=== PATIENT | male | born 1935 | race Caucasian/White ===

== ENCOUNTER 2019-03-20 13:37 | Outpatient (RCR) | payer MEDICARE, OTHER, SELFPAY | END 2019-04-11 00:01 | LOC: SPT 13:37 | PROVIDERS: Family Provider Family Medicine; Visit Provider Orthopaedic Surgery | DX: Z47.1 Aftercare following joint replacement surgery (principal); Z96.652 Presence of left artificial knee joint | CPT/HCPCS: 97110 ×9; 97161 ==

== ENCOUNTER 2019-04-12 13:03 | Outpatient (RCR) | payer MEDICARE, OTHER, SELFPAY | END 2019-05-12 23:59 | disposition home or self-care (01) | LOC: SPT 13:03 | PROVIDERS: Family Provider Family Medicine; PCP Family Medicine; Visit Provider Orthopaedic Surgery | DX: Z47.1 Aftercare following joint replacement surgery (principal); Z96.652 Presence of left artificial knee joint | CPT/HCPCS: 97110 ==

== ENCOUNTER 2019-05-13 06:00 | Outpatient (RCR) | payer MEDICARE, OTHER, SELFPAY | END 2019-06-10 23:59 | disposition home or self-care (01) | LOC: SPT 06:00 | PROVIDERS: Family Provider Family Medicine; PCP Family Medicine; Visit Provider Orthopaedic Surgery | DX: Z47.1 Aftercare following joint replacement surgery (principal); Z96.652 Presence of left artificial knee joint | CPT/HCPCS: 97110; 97150 ==

== ENCOUNTER 2019-05-30 13:23 | Outpatient (CLI) | payer MEDICARE, OTHER, SELFPAY ==
--- NOTE | 2019-05-30 13:25 | XR_ITS ---
WS: [id number] XR knee LT 3V* [id number] REASON FOR EXAM: LEFT KNEE PAIN FINDINGS: Total knee replacement on the left is seen. The hardware appears to be in good position. No dysfunction changes are noted. There is no bony abnormalities in the supporting structures. XR/XR knee LT 3V* [id number] IMPRESSION: Total knee replacement satisfactory.
== END 2019-05-30 13:24 | disposition home or self-care (01) ==
LOC: RAD 13:23
PROVIDERS: Family Provider Family Medicine; PCP Family Medicine; Visit Provider Orthopaedic Surgery
DX: M25.562 Pain in left knee (principal); Z96.652 Presence of left artificial knee joint
CPT/HCPCS: 73562

== ENCOUNTER 2019-06-11 06:00 | Outpatient (RCR) | payer MEDICARE, OTHER, SELFPAY | END 2019-06-28 23:00 | disposition home or self-care (01) | LOC: SPT 06:00 | PROVIDERS: Family Provider Family Medicine; PCP Family Medicine; Visit Provider Orthopaedic Surgery | DX: Z01.89 Encounter for other specified special examinations (principal) ==

== ENCOUNTER 2019-06-27 12:47 | Outpatient (CLI) | payer MEDICARE, OTHER, SELFPAY ==
--- NOTE | 2019-06-27 13:01 | XR_ITS ---
WS: [id number] XR knee LT 3V* [id number] REASON FOR EXAM: L KNEE PAIN FINDINGS: Total knee replacement on the left side with the hardware in good position. There is mild soft tissue swelling overriding the patella. XR/XR knee LT 3V* [id number] IMPRESSION: Total knee replacement satisfactory alignment. Mild soft tissue swelling.
== END 2019-06-27 12:48 | disposition home or self-care (01) ==
LOC: RAD 12:53
PROVIDERS: Family Provider Family Medicine; PCP Family Medicine; Visit Provider Orthopaedic Surgery
DX: M25.562 Pain in left knee (principal); Z96.652 Presence of left artificial knee joint
CPT/HCPCS: 73562

== ENCOUNTER 2020-02-15 10:42 | Outpatient (CLI) | payer MEDICARE, OTHER, SELFPAY ==
--- NOTE | 2020-02-15 | XR_ITS ---
WS: [id number] Lumbar spine, 3 views, 02/15/2020 Clinical Data: LOW BACK PAIN Comparison: None. Findings: No compression fractures or subluxation is seen. There is space narrowing at L3-L4, L4-L5 and L5-S1. Anterior osteoarthritic spurring is seen. The transverse processes and SI joints are normal. There is calcification of the wall of the abdominal aorta but no aneurysm is seen. XR/XR lumbar spine 2-3V* [id number] Impression: 1. 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 2. Degenerative disc narrowing at L3-L4, L4-L5 and L5-S1.
== END 2020-02-15 10:43 | disposition home or self-care (01) ==
PROVIDERS: PCP Family Medicine; Visit Provider Family Medicine
DX: M54.5 Low back pain (principal); M47.816 Spondylosis without myelopathy or radiculopathy, lumbar region
CPT/HCPCS: 72100

== ENCOUNTER 2020-03-27 13:38 | Outpatient (CLI) | payer MEDICARE, OTHER, SELFPAY ==
--- NOTE | 2020-03-27 13:44 | XR_ITS ---
WS: [id number] Right hip, AP and frog-leg views, 03/27/2020 Clinical Data: HIP PAIN, RIGHT Comparison: None. Findings: No fractures or dislocations are seen. The hip joint is intact. The soft tissues are not remarkable. The adjacent pelvis is normal. XR/XR hip RT 2-3V wo/w pel* [id number] Impression: Negative right hip.
--- NOTE | 2020-03-27 13:44 | MR_ITS ---
WS: [id number] MRI LUMBAR SPINE NONCONTRAST HISTORY: HIP PAIN, RIGHT, LOW BACK PAIN COMPARISON: None available. TECHNIQUE: Sagittal and axial multisequence imaging is submitted. Increase in the cervical lordosis and thoracic kyphosis. Disc bulging and osteophytes in the central cervical region contribute to mild central stenosis. No cord compression through the thoracic spine. Less than 2 mm anterolisthesis of L4. Mild disc space narrowing and desiccation. Most significant desiccation at L5-S1. Conus terminates normally at L2. L1-L2: Mild annular disc bulging and facet arthritis. Very shallow central disc protrusion. L2-L3: Mild annular disc bulging. Moderate size RIGHT foraminal and subarticular recess disc protrusi on causing significant stenosis. Mild contact on the RIGHT lateral thecal sac. This disc is probably contacting both the L2 and L3 nerve root. L3-L4: Mild osteophytic ridging and annular disc bulging. Asymmetric facet joint arthritis and ligame ntum flavum hypertrophy, greater on the LEFT. Mild LEFT foraminal narrowing. L4-L5: Mild diffuse disc bulging and osteophytic ridging and mild facet arthritis. Mild subarticular recess narrowing. Asymmetric ligamentum flavum hypertrophy encroaches into the thecal sac. Mild centr al stenosis. L5-S1: Mild annular disc bulging. There is very slight contact on the L5 nerve roots bilaterally. Mild atherosclerotic disease within the aorta. MR/MR lumbar spine wo con* [id number] IMPRESSION: 1. Moderate-sized RIGHT subarticular foraminal disc protrusion at L2-3 with co ntact on the L2 and L3 nerve roots and foraminal stenosis. 2. Facet joint arthritis at L3-4 through L5-S1. 3. Mild LEFT foraminal stenosis at L3-4. 4. Mild central stenosis at L4-5. 5. Minimal contact on the L5 nerve roots bilaterally at L5-S1 due to disc bulg ing.
== END 2020-03-27 13:39 | disposition home or self-care (01) ==
LOC: RADWPI 13:43
PROVIDERS: PCP Family Medicine; Visit Provider Family Medicine
DX: M25.551 Pain in right hip (principal); M51.26 Other intervertebral disc displacement, lumbar region; M47.817 Spondylosis without myelopathy or radiculopathy, lumbosacral region; M48.061 Spinal stenosis, lumbar region without neurogenic claudication
CPT/HCPCS: 72148; 73502

== ENCOUNTER → 2021-06-16 13:22 | Outpatient (BNVA) | payer MEDICARE, OTHER, SELFPAY | PROVIDERS: PCP Family Medicine; Visit Provider Internal Medicine Cardiovascular Disease | DX: I25.10 Atherosclerotic heart disease of native coronary artery without angina pectoris (principal); I10 Essential (primary) hypertension; E78.00 Pure hypercholesterolemia, unspecified; I49.1 Atrial premature depolarization; Z95.1 Presence of aortocoronary bypass graft; Z87.891 Personal history of nicotine dependence | CPT/HCPCS: 99215 ==

== ENCOUNTER 2021-08-21 08:04 | Outpatient (CLI) | payer MEDICARE, OTHER, SELFPAY ==
[2021-08-21 08:48] VITALS: BMI 24.3
--- NOTE | 2021-08-21 08:48 | ECG_ITS ---
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 Interpretive Statements NAME OF STUDY: LEXISCAN SESTAMIBI STRESS TEST INDICATION: Chest Pain PROCEDURE: At the baseline, the blood pressure was 158/79 mmHg, oxygen saturation 97% with a heart rate of 61 bpm. The electrocardiogram showed normal sinus rhythm, right axis deviation. Possible old anterior infarct. The Lexiscan was infused over a period of 20 seconds. A total of 0.4 milligrams of Lexiscan was infused. The stress phase was continued for a total of 5 minutes. Heart rate at the end of the stress phase was 82 bpm, oxygen saturation 97% with a blood pressure of 154/83 mmHg. The EKG at the peak infusion revealed sinus rhythm with no significant ST-T wave changes. The study was terminated protocol completion. Sestamibi was injected 20 seconds after the Lexiscan infusion. Blood pressure at the end of the recovery phase was 152/84 mmHg, oxygen saturation 97% with a heart rate of 76 beats per minute. CONCLUSION: 1. No significant EKG changes with the LexiScan infusion. 2. No LexiScan induced chest pain or cardiac arrhythmia. 3. Normal blood pressure and heart rate response. 4. Sestamibi/sestamibi perfusion scan pending; see separate report. Electronically Signed On 08-25-2021 11:02:44 CDT by Diane Mirza M.D. [id number]
--- NOTE | 2021-08-21 08:48 | NMCV_ITS ---
NM ele perf SPECT r/s* [id number] West Villanueva Age: 85 Gender: M : 1935 Exam Date: 08/21/2021 08:48 Ordering Phys: Diane Mirza MD ([email or web address]) Technologist: YANIV Rodriguez Exam Location: [facility] Indications: CHEST PAIN STRESS TEST Please see separate stress test report in [facility] for full findings IMAGE PROTOCOL Rest/Stress 1 Lexiscan Day Radiopharmaceutical Dose (mCi) Administration Site Administered by Rest: Tc-99m 10.7 IV YANIV Rodriguez Sestamibi Stress:Tc-99m 32.9 IV YANIV Rodriguez Sestamibi Rest: 21-Aug-2021 60 Discovery 630 Stress: 21-Aug-2021 30 Discovery 630 0.4mg Lexiscan. Images obtained in supine and prone position. SPECT RESULTS Technical Quality: Excellent Raw Data Analysis: Normal Image Corrections: No attenuation or motion correction applied Summed Stress Score: 5 Summed Rest Score: 2 Summed Difference Score: 3 PERFUSION FINDINGS Small sized perfusion abnormality of mild severity of basal to mid inferior wall on rest images with reversibility in mid to apical inferior and apical lateral santos on stress images. FUNCTIONAL RESULTS (calculated via Gated SPECT) Stress Image LV EF (%): 64 Stress EDV (mL):90 TID: 0.82 Stress ESV (mL):32 FUNCTIONAL FINDINGS: The left ventricle is normal in size. Transient Ischemia Dilatation of 0.82. The left ventricular ejection fraction is normal with a value of 64%. There is normal left ventricular wall thickening. Normal end diastolic and end systolic volumes. IMPRESSIONS 1. Small sized partially reversible perfusion abnormality of basal to apical inferior wall and apical lateral santos. 2. 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 3. Overall left ventricular systolic function is normal without regional wall motion abnormalities, LVEF=64%. 4. EKG portion of the study will be reported separately. 5. No prior similar studies to compare. Diane Mirza MD (Electronically Signed) Final Date: 22 Aug 2021 17:49 S
--- NOTE | 2021-08-21 10:59 | PC.NURSE ---
pt not able to hit 85% to complete test. dr ruth roberto to change to GetMaidgeraldan
[2021-08-21 11:17] VITALS: BP 168/90; PULSE 79
[2021-08-21] MEDS: regadenoson 0.4 Mg/5 ml Syringe IVP (11:18)
== END 2021-08-21 08:05 | disposition home or self-care (01) ==
LOC: RAD 08:05 → CDL 08:47
PROVIDERS: PCP Family Medicine; Visit Provider Internal Medicine Cardiovascular Disease
DX: R07.9 Chest pain, unspecified (principal)
CPT/HCPCS: 78452; 93017; A9500; J2785

== ENCOUNTER → 2021-12-23 13:42 | Outpatient (BNVA) | payer MEDICARE, OTHER, SELFPAY | PROVIDERS: PCP Family Medicine; Visit Provider Internal Medicine Cardiovascular Disease | DX: I25.10 Atherosclerotic heart disease of native coronary artery without angina pectoris (principal); Z95.1 Presence of aortocoronary bypass graft; I10 Essential (primary) hypertension; E78.00 Pure hypercholesterolemia, unspecified; I49.1 Atrial premature depolarization; Z87.891 Personal history of nicotine dependence | CPT/HCPCS: 99214 ==

== ENCOUNTER → 2022-06-16 14:55 | Outpatient (BNVA) | payer MEDICARE, OTHER, SELFPAY | PROVIDERS: PCP Family Medicine; Visit Provider Nurse Practitioner Family | DX: I25.10 Atherosclerotic heart disease of native coronary artery without angina pectoris (principal); I10 Essential (primary) hypertension; E78.00 Pure hypercholesterolemia, unspecified; Z87.891 Personal history of nicotine dependence; Z95.1 Presence of aortocoronary bypass graft | CPT/HCPCS: 99214 ==

== ENCOUNTER → 2022-08-27 13:41 | Outpatient (BNVA) | payer MEDICARE, OTHER, SELFPAY | PROVIDERS: PCP Family Medicine; Visit Provider Family Medicine | DX: R41.3 Other amnesia (principal) | CPT/HCPCS: 80053; 82607; 82746; 84443; 85025; 86592 ==

== ENCOUNTER → 2023-01-11 15:24 | Outpatient (BNVA) | payer MEDICARE, OTHER, SELFPAY | PROVIDERS: PCP Family Medicine; Visit Provider Internal Medicine Cardiovascular Disease | DX: I25.10 Atherosclerotic heart disease of native coronary artery without angina pectoris (principal); Z95.1 Presence of aortocoronary bypass graft; I10 Essential (primary) hypertension; E78.00 Pure hypercholesterolemia, unspecified; Z87.891 Personal history of nicotine dependence | CPT/HCPCS: 99214 ==

== ENCOUNTER → 2023-02-17 08:31 | Outpatient (BNVA) | payer MEDICARE, OTHER, SELFPAY | PROVIDERS: PCP Family Medicine; Referring Provider Family Medicine; Visit Provider Psychiatry & Neurology Neurology | DX: F03.90 Unspecified dementia, unspecified severity, without behavioral disturbance, psychotic disturbance, mood disturbance, and anxiety (principal); Z86.73 Personal history of transient ischemic attack (TIA), and cerebral infarction without residual deficits; I25.10 Atherosclerotic heart disease of native coronary artery without angina pectoris; I10 Essential (primary) hypertension; Z95.1 Presence of aortocoronary bypass graft; Z87.891 Personal history of nicotine dependence | CPT/HCPCS: 99203 ==

== ENCOUNTER 2023-03-24 14:37 | Outpatient (CLI) | payer MEDICARE, OTHER, SELFPAY ==
--- NOTE | 2023-03-24 15:15 | USCV_ITS ---
West Villanueva Age: 87 Gender: M : 1935 Exam Date: 03/24/2023 15:40 Ordering Phys: Javier Lee MD Technologist: HUI Exam Location: [facility] Indication: TIA Risk Factors: Previous Vascular Surgery: Right Brachial BP: / Left Brachial BP: / Right Left Velocity (cm/s) Spectral Plaque Velocity (cm/s) Spectral Plaque Syst/Diast Broadening Syst/Diast Broadening 45.40/ 9.20 Prox CCA 78.20 / 13.80 49.30/ 9.20 Mid CCA 62.50 / 12.50 42.70/ 12.50 Distal CCA 52.30 / 14.80 24.00/ 8.20 Prox ICA 47.50 / 15.50 40.40/ 13.70 Mid ICA 37.90 / 15.00 42.70/ 14.50 Distal ICA 64.60 / 21.40 98.30 ECA 115.80 0.87 ICA/CCA 0.83 Antegrade Vertebral Antegrade 67.00/ 7.90 cm/s 32.60/ 10.10 cm/s Tri Subclavian Tri 87.00 134.6 0 CONCLUSIONS Right ICA stenosis <50%. Mild atheromatous plaque right carotid bulb/ICA. Left ICA stenosis <50%. Mild atheromatous plaque left carotid bulb/ICA. Normal antegrade Doppler flow noted in the right vertebral artery. Normal antegrade Doppler flow noted in the left vertebral artery. Foreign Luna MD (Electronically Signed) Final Date: 24 March 2023 16:37 S
--- NOTE | 2023-03-24 15:45 | MR_ITS ---
WS: [id number] MRA HEAD TECHNIQUE: Axial 3-D TOF images obtained with axial images and axial, sagittal, and coronal 2-D refor matted images. CLINICAL INFORMATION: F03.90 - Unspecified dementia, unspecified severity, with... COMPARISON: None. FINDINGS: LEFT dominant distal vertebral artery. Small distal RIGHT vertebral artery is patent. Basilar artery is patent. Normal vascularity to the CASTING CARRIER territory bilaterally. Both ICAs are patent at the skull base. Normal vascularity to the CAMILO and MCA territories bilaterally . No evidence of proximal flow-limiting stenosis or aneurysm. Mild intracranial atheromatous disease. Moderate LEFT and mild RIGHT stenosis at the P1-2 junctions bilaterally. Distal CASTING CARRIER vessels remain p atent. IMPRESSION: 1. Mild intracranial atheromatous disease. 2. No evidence of proximal flow-limiting stenosis or aneurysm. 3. Moderate LEFT and mild RIGHT stenosis at the P1-2 junctions. Distal CASTING CARRIER vessels remain patent.
--- NOTE | 2023-03-24 16:00 | MR_ITS ---
WS: [id number] MRI HEAD WITHOUT CONTRAST TECHNIQUE: Sagittal T1, T2 axial, T2 axial FLAIR, axial and coronal T1 images, axial susceptibility w eighted imaging, axial diffusion weighted images, and coronal T2 images were obtained. CLINICAL INFORMATION: F03.90 - Unspecified dementia, unspecified severity, with... COMPARISON: None. FINDINGS: No evidence of restricted diffusion to suggest acute ischemia. Ventricular system and basilar cistern s are patent. Mild small vessel changes. Advanced parenchymal volume loss with prominent subarachnoid spaces overlying the vertex. Few tiny chronic lacunar infarcts in the cerebellum. Normal vascular fl ow voids at the skull base. Paranasal sinuses are well aerated. Mastoid air cells are well aerated. Normal posterior nasopharynx. Normal optic chiasm and pituitary infundibulum. Advanced symmetric atrophy temporal lobes and hippoc ampal formations. No hemosiderin on the susceptibly weighted images. Mild central canal stenosis in the upper cervical spine partially visualized C3-C4. IMPRESSION: 1. No evidence of restricted diffusion to suggest acute ischemia. 2. Mild small vessel changes with advanced parenchymal volume loss. 3. Advanced symmetric atrophy temporal lobes and hippocampal formations. 4. No hemosiderin on susceptibly weighted images. 5. Tiny chronic lacunar infarcts in the cerebellum.
== END 2023-03-24 14:38 | disposition home or self-care (01) ==
PROVIDERS: PCP Family Medicine; Visit Provider Psychiatry & Neurology Neurology
DX: F03.90 Unspecified dementia, unspecified severity, without behavioral disturbance, psychotic disturbance, mood disturbance, and anxiety (principal); Z86.73 Personal history of transient ischemic attack (TIA), and cerebral infarction without residual deficits; I67.2 Cerebral atherosclerosis; I10 Essential (primary) hypertension; I25.10 Atherosclerotic heart disease of native coronary artery without angina pectoris; R41.3 Other amnesia
CPT/HCPCS: 70544; 70551; 93880

== ENCOUNTER → 2023-05-18 13:20 | Outpatient (BNVA) | payer MEDICARE, OTHER, SELFPAY | PROVIDERS: PCP Family Medicine; Visit Provider Psychiatry & Neurology Neurology | DX: F03.90 Unspecified dementia, unspecified severity, without behavioral disturbance, psychotic disturbance, mood disturbance, and anxiety (principal); I25.10 Atherosclerotic heart disease of native coronary artery without angina pectoris; Z87.891 Personal history of nicotine dependence; I10 Essential (primary) hypertension; E55.9 Vitamin D deficiency, unspecified | CPT/HCPCS: 36415; 82306; 82542; 83735; 86592; 86780; 99212 ==

== ENCOUNTER → 2023-06-23 13:15 | Outpatient (BNVA) | payer MEDICARE, OTHER, SELFPAY | PROVIDERS: PCP Family Medicine; Visit Provider Family Medicine | DX: I10 Essential (primary) hypertension (principal); E78.00 Pure hypercholesterolemia, unspecified | CPT/HCPCS: 80053; 80061 ==

== ENCOUNTER → 2023-07-13 13:52 | Outpatient (BNVA) | payer MEDICARE, OTHER, SELFPAY | PROVIDERS: PCP Family Medicine; Visit Provider Psychiatry & Neurology Neurology | DX: F03.90 Unspecified dementia, unspecified severity, without behavioral disturbance, psychotic disturbance, mood disturbance, and anxiety (principal); R41.3 Other amnesia; R94.01 Abnormal electroencephalogram [EEG] | CPT/HCPCS: 95812 ==

== ENCOUNTER → 2023-07-26 13:01 | Outpatient (BNVA) | payer MEDICARE, OTHER, SELFPAY | PROVIDERS: PCP Family Medicine; Visit Provider Psychiatry & Neurology Neurology | DX: R41.3 Other amnesia (principal); R94.01 Abnormal electroencephalogram [EEG]; I25.10 Atherosclerotic heart disease of native coronary artery without angina pectoris; Z87.891 Personal history of nicotine dependence; I10 Essential (primary) hypertension | CPT/HCPCS: 99212 ==

== ENCOUNTER → 2023-09-23 14:02 | Outpatient (BNVA) | payer MEDICARE, OTHER, SELFPAY | PROVIDERS: PCP Family Medicine; Visit Provider Internal Medicine | DX: I25.10 Atherosclerotic heart disease of native coronary artery without angina pectoris (principal); Z95.1 Presence of aortocoronary bypass graft; I10 Essential (primary) hypertension; E78.00 Pure hypercholesterolemia, unspecified; I49.1 Atrial premature depolarization; Z87.891 Personal history of nicotine dependence | CPT/HCPCS: 99214 ==

== ENCOUNTER → 2023-12-21 13:13 | Outpatient (BNVA) | payer MEDICARE, OTHER, SELFPAY | PROVIDERS: PCP Family Medicine; Visit Provider Psychiatry & Neurology Neurology | DX: R41.3 Other amnesia (principal); R94.01 Abnormal electroencephalogram [EEG] | CPT/HCPCS: 99212; 99213 ==

== ENCOUNTER → 2024-03-01 13:41 | Outpatient (BNVA) | payer MEDICARE, OTHER, SELFPAY | PROVIDERS: PCP Family Medicine; Visit Provider Family Medicine | DX: F03.90 Unspecified dementia, unspecified severity, without behavioral disturbance, psychotic disturbance, mood disturbance, and anxiety (principal) | CPT/HCPCS: 86618; 86666; 86757 ==

== ENCOUNTER → 2024-06-19 13:09 | Outpatient (BNVA) | payer MEDICARE, OTHER, SELFPAY | PROVIDERS: PCP Family Medicine; Visit Provider Psychiatry & Neurology Neurology | DX: F03.90 Unspecified dementia, unspecified severity, without behavioral disturbance, psychotic disturbance, mood disturbance, and anxiety (principal); R41.3 Other amnesia; R94.01 Abnormal electroencephalogram [EEG] | CPT/HCPCS: 0346U; 36415; 83520; 99212 ==

== ENCOUNTER → 2024-10-12 15:02 | Outpatient (BNVA) | payer MEDICARE, OTHER, SELFPAY | PROVIDERS: Visit Provider Internal Medicine | DX: I25.10 Atherosclerotic heart disease of native coronary artery without angina pectoris (principal); I10 Essential (primary) hypertension; E78.00 Pure hypercholesterolemia, unspecified; I49.1 Atrial premature depolarization; Z95.1 Presence of aortocoronary bypass graft; Z87.891 Personal history of nicotine dependence | CPT/HCPCS: 99213 ==

== ENCOUNTER 2024-12-27 20:41 | Emergency (ER) | payer OTHER, SELFPAY ==
[2024-12-27 20:42] VITALS: BP 149/92; PULSE 85; RESP 16; TEMP 36.6; O2SAT 94; BMI 24.3
--- OUTSIDE RECORDS SUMMARY | 2024-12-27 20:54 | XMS_ITS | Continuity of Care Document ---
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 Refere nce Range Tuberculosis reaction wheal[ 04849-5] Tuberculosis reaction wheal [50079-1] 12/08/2024 02:45 PM 0 mm NEG Tuberculosis reaction wheal[ 39763-0] Tuberculosis reaction wheal [42566-3] 12/02/2024 04:24 PM 0 mm NEG Allergies, adverse reactions, alerts No known allergies and adverse reactions Immunizations Vaccine Route Date Status COVID-19 Vaccine Unassigned Route of Administration Completed COVID-19 Vaccine Unassigned Route of Administration Completed COVID-19 Vaccine Unassigned Route of Administration Completed COVID-19 Vaccine Unassigned Route of Administration Refused Zoster Vaccine Unassigned Route of Administration 07/11 Completed Medications Medication Instructions Route Dosage Frequency Start Date Stop Date Indications Status atorvastatin 80 mg tablet (atorvastatin) 1 tab, oral, Once A Day, TI for rosuvastatin oral 1.0 1.0 d 12/18 Active citalopram 10 mg tablet (citalopram) 1 tab, oral, Once A Day oral 1.0 1.0 d 2024 Active cholecalciferol (vitamin D3) 1,250 mcg (50,000 unit) capsule (cholecalcifero l (vitamin D3)) 1 cap, oral, Once a Day on Mon oral 1.0 1.0 d 12/18 Active Dulcolax (bisacodyl) (bisacodyl) 10 mg suppository (Dulcolax (bisacodyl) (bisacodyl)) 1 suppository, rectal, Once A Day - PRN, Give rectally if can't take p/o, if no results from MOM rectal 1.0 1.0 d 2024 Active trazodone 50 mg tablet (trazodone) 1 tab, oral, At Bedtime oral 1.0 2024 Active Tylenol (acetaminophen) 325 mg tablet (Tylenol (acetaminophen) ) 2 tabs/650mg, oral, Every 6 Hours - PRN, as needed for PRN pain/increase d tempMay give rectally if necessary oral 1.0 6.0 h 2024 Active Tubersol (tuberculin ppd) 5 tub. unit /0.1 mL solution (Tubersol (tuberculin ppd)) 0.1ml, intradermal, Once - One Time, Administer the morning after admission intraderma l 1.0 12/02 Active Tubersol (tuberculin ppd) 5 tub. unit /0.1 mL solution (Tubersol (tuberculin ppd)) 0.1ml, intradermal, Once - One Time, Administer on the day shift intraderma l 1.0 12/08 Active Vital Signs Date Vital Result Comment 12/06/2024 12:41 PM Body Weight (42432-1) 164.8 [lb_av ] Body Mass Index (56767-1) 25.06 kg/m2 12/01/2024 03:41 PM Temperature (8310-5) 97.3 [degF] Oxygen Saturation (70222-3) 100 % Respiratory Rate (9279-1) 19 /min Heart Rate (8867-4) 72 /min Blood Pressure Systolic (8480-6) 124 mm[Hg] Blood Pressure Diastolic (8462-4) 84 mm[Hg] Body Weight (27620-1) 154.4 [lb_av] Body Mass Index (88891-0) 23.47 kg/m2 12/02/2024 08:15 AM Body Weight (31684-7) 157.2 [lb_av ] Body Mass Index (95192-1) 23.9 kg/m2 12/11/2024 04:25 PM Body Weight (64917-3) 170.8 [lb_av ] Body Mass Index (97053-8) 25.97 kg/m2 12/03/2024 06:56 PM Temperature (8310-5) 98.4 [degF] Oxygen Saturation (90950-2) 95 % Respiratory Rate (9279-1) 16 /min Heart Rate (8867-4) 60 /min Blood Pressure Systolic (8480-6) 132 mm[Hg] Blood Pressure Diastolic (8462-4) 78 mm[Hg] 12/15/2024 10:27 AM Body Weight (17027-9) 173.6 [lb_av ] Body Mass Index (66522-1) 26.39 kg/m2 12/14/2024 03:11 PM Body Weight (67651-1) 173.8 [lb_av ] Body Mass Index (16759-0) 26.42 kg/m2 12/13/2024 04:35 PM Body Weight (32479-3) 173.2 [lb_av ] Body Mass Index (99898-3) 26.33 kg/m2 12/02/2024 06:09 PM Temperature (8310-5) 98 [degF] Oxygen Saturation (85483-0) 94 % Respiratory Rate (9279-1) 18 /min Heart Rate (8867-4) 62 /min Blood Pressure Systolic (8480-6) 134 mm[Hg] Blood Pressure Diastolic (8462-4) 74 mm[Hg] 12/01/2024 08:44 PM Temperature (8310-5) 96.8 [degF] Oxygen Saturation (17666-7) 98 % Respiratory Rate (9279-1) 16 /min Heart Rate (8867-4) 74 /min Blood Pressure Systolic (8480-6) 117 mm[Hg] Blood Pressure Diastolic (8462-4) 80 mm[Hg] 12/03/2024 09:31 AM Body Weight (94849-6) 160.2 [lb_av ] Body Mass Index (87371-4) 24.36 kg/m2 12/02/2024 09:12 AM Temperature (8310-5) 98.1 [degF] Oxygen Saturation (02733-0) 93 % Respiratory Rate (9279-1) 18 /min Heart Rate (8867-4) 53 /min Blood Pressure Systolic (8480-6) 147 mm[Hg] Blood Pressure Diastolic (8462-4) 84 mm[Hg] 12/03/2024 09:14 AM Temperature (8310-5) 97.7 [degF] Oxygen Saturation (52333-6) 94 % Respiratory Rate (9279-1) 20 /min Heart Rate (8867-4) 53 /min Blood Pressure Systolic (8480-6) 150 mm[Hg] Blood Pressure Diastolic (8462-4) 82 mm[Hg] 12/01/2024 02:32 PM Body Height (8302-2) 68 [in_us] 12/20/2024 11:35 AM Body Weight (49530-0) 17.6 [lb_av] Body Mass Index (51520-6) 2.68 kg/m2 12/20/2024 05:17 PM Body Weight (37882-6) 176.6 [lb_av ] Body Mass Index (88864-4) 26.85 kg/m2 12/27/2024 03:18 PM Body Weight (27370-1) 182.8 [lb_av ] Body Mass Index (71157-3) 27.79 kg/m2 Social History No smoking Hx information available Encounters Type CPT Code Date Location Provider Indication s encounter report 12/01/2024 01:07 PM Elizabeth Wright DO 01 Advance Directives Directive Description Verification Date Supporting Document(s) Other Directive
--- OUTSIDE RECORDS SUMMARY | 2024-12-27 20:54 | XMS_ITS | Encounter Summary ---
Author Organization [facility] Address [address] [place] [address] Care Team Providers Care Cotton Ball Machine Tender Name Role Phone Alirio Andrews MD Primary Care Provider + Encounter Details Date Type Department Care Team (Latest Contact Info) Description 11/19/2004 Outpatient Historical [facility] Cardiology- [place] [address] [place] [address] Bijan Willis MD [address] [facility] [address] [place] [address] CHR ISCHEMIC HRT DIS NEC (Primary Dx); CARDIAC PACEMAKER IN SITU; CORON ATHEROSCL [place] CORON VESSEL; Pure hypercholesterolem Social History Tobacco Use Types Packs/Day Years Used Date Smoking Tobacco: Never Assessed Sex and Gender Information Value Date Recorded Sex Assigned at Not on file 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 Gender Identity Not on file Sexual Orientation Not on file documented as of this encounter Plan of Treatment Not on file documented as of this encounter Visit Diagnoses Diagnosis 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
--- OUTSIDE RECORDS SUMMARY | 2024-12-27 20:54 | XMS_ITS | Encounter Summary ---
Author Organization [facility] Address [address] [place] [address] Care Team Providers Care Destination Imagination Coordinator Name Role Phone Alirio Andrews MD Primary Care Provider + Encounter Details Date Type Department Care Team (Latest Contact Info) Description 08/22/2003 Outpatient Historical [facility] Cardiology- [place] [address] [place] [address] Bijan Willis MD [address] [facility] [address] [place] [address] BENIGN HYP HRT DIS W/O HRT FAIL (Primary Dx); CORON ATHEROSCL [place] CORON VESSEL; MIXED HYPERLIPIDEMIA Social History Tobacco Use Types Packs/Day Years Used Date Smoking Tobacco: Never Assessed Sex and Gender Information Value Date Recorded Sex Assigned at Not on file 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
--- OUTSIDE RECORDS SUMMARY | 2024-12-27 20:54 | XMS_ITS | Encounter Summary ---
Author Organization [facility] Address [address] [place] [address] Care Team Providers Care Grants Assistant Name Role Phone Alirio Andrews MD Primary Care Provider + Encounter Details Date Type Department Care Team (Latest Contact Info) Description 01/25/2007 Outpatient Historical [facility] Cardiology- [place] [address] [place] [address] Bijan Willis MD [address] [facility] [address] [place] [address] Coronary Atherosclerosis of [place] Coronary Artery (Primary Dx); Pure Hypercholesterolem; Aortocoronary Bypass Social History Tobacco Use Types Packs/Day Years Used Date Smoking Tobacco: Never Assessed Sex and Gender Information Value Date Recorded Sex Assigned at Not on file 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 1 [place] [address] PCP - General 06/20/02 documented as of this encounter
--- OUTSIDE RECORDS SUMMARY | 2024-12-27 20:55 | XMS_ITS | Encounter Summary ---
Author Organization [facility] Address [address] [place] [address] Care Team Providers Care Banking Officer Name Role Phone Alirio Andrews MD Primary Care Provider + Encounter Details Date Type Department Care Team (Latest Contact Info) Description 07/20/2002 Outpatient Historical [facility] Cardiac Thoracic Vascular Surg [place] [address] [place] [address] Vladislav Camarena MD NO ADDRESS ON FILE CORON ATHEROSCL [place] CORON VESSEL (Primary Dx) Social History Tobacco Use Types Packs/Day Years Used Date Smoking Tobacco: Never Assessed Sex and Gender Information Value Date Recorded Sex Assigned at Not on file 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
--- OUTSIDE RECORDS SUMMARY | 2024-12-27 20:55 | XMS_ITS | Clinical Summary ---
Author Organization 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
--- OUTSIDE RECORDS SUMMARY | 2024-12-27 20:55 | XMS_ITS | Encounter Summary ---
Author Organization [facility] Address [address] [place] [address] Care Team Providers Care Prn Occupational Therapist Name Role Phone Alirio Andrews MD Primary Care Provider + Encounter Details Date Type Department Care Team (Latest Contact Info) Description 08/14/[address] 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 Gender Identity Not on file Sexual Orientation Not on file documented as of this encounter Plan of Treatment Not on file documented as of this encounter Visit Diagnoses Diagnosis 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
--- OUTSIDE RECORDS SUMMARY | 2024-12-27 20:55 | XMS_ITS | Encounter Summary ---
Author Organization [employer] [facility] Address [address] [place] [address] Care Team Providers Care Hook And Eye Sewing Machine Operator Name Role Phone Alirio Andrews MD Primary Care Provider + Encounter Details Date Type Department Care Team (Late st Contact Info) Description 06/20/2002 Inpatient Historical [facility] IN BED Vladislav Camarena MD NO ADDRESS ON FILE Bijan Willis MD [address] [facility] [address] [place] [address] CORON ATHEROSCL [place] CORON VESSEL (Primary Dx) Social History Tobacco Use Types Packs/Day Years Used Date Smoking Tobacco: Never Assessed Sex and Gender Information Value Date Recorded Sex Assigned at Not on file 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
--- OUTSIDE RECORDS SUMMARY | 2024-12-27 20:55 | XMS_ITS | Continuity of Care Document ---
Author Organization [facility] Address [address] [place] [address] Care Team Providers Care Net Developer Architect Name Role Phone Dr. Riaz Wright DO Attending Physician Medications Medication Frequency Instructions Diagnosis Start Date End Date Last Administered citalopram 10 mg tablet Once A Day 1 tab, oral, Once A Day 12/01/1912/27/2024 08:17 AM Dulcolax (bisacodyl) (bisacodyl) 10 mg suppository Once A Day - PRN 1 suppository, rectal, Once A Day - PRN, Give rectally if can't take p/o, if no results from [facility] 12/02/19 trazodone 50 mg tablet At Bedtime 1 tab, oral, At Bedtime 12/01/19 25 12/26/2024 06:42 PM Tylenol (acetaminophen) 325 mg tablet Every 6 Hours - PRN 2 tabs/650mg, oral, Every 6 Hours - PRN, as needed for PRN pain/increased temp May give rectally if necessary 12/02/19 25 12/23/2024 05:41 AM atorvastatin 80 mg tablet Once A Day 1 tab, oral, Once A Day, TI for rosuvastatin 12/01/19 25 025 12/18/2024 07:46 AM cholecalciferol (vitamin D3) 1,250 mcg (50,000 unit) capsule Once a Day on Wed cap, oral, Once a Day on Wed12/01/19 25 025 12/18/2024 07:46 AM Tubersol (tuberculin ppd) 5 tub. unit /0.1 mL solution Once - One Time 0.1ml, intradermal, Once - One Time, Administer the morning after admission 12/03/19 025 12/02/2024 11:27 AM Tubersol (tuberculin ppd) 5 tub. 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 Active ICD-10 Unspecified dementia , unspecified severity, without behavioral disturbance, psychotic disturbance, mood disturbance, and anxiety F03.90 12/18/2024 Active ICD-10 Encounter for palliative care Z51.5 2024 Active ICD-10 Hyperlipidemia, unspecified E78.5 12/05/19 Active ICD-10 Depression, unspecified F32.A 12/04/2024 A ctive ICD-10 Psychophysiologic insomnia F51.04 Active ICD-10 Vitamin D deficiency, unspecified E55.9 Active Current Allergies and Intolerances Category Substance Type Reaction Severity Begin Date Status Drug Allergy No known drug allergies Allergy Active Vital Signs Height: 68.0 in Date / Time Temperature Pulse (per minute) Respirations (per minute) Systolic BP (mmHg) Diastolic BP (mmHg) O2 Saturation (%) Weight BMI 2024 03:18 PM 182.8 lbs 27.7 9 2024 05:17 PM 176.6 lbs 26.8 5 2024 11:35 AM 17.6 lbs 2.68 2024 10:27 AM 173.6 lbs 26.3 9 2024 03:11 PM 173.8 lbs 26.4 2 2024 04:35 PM 173.2 lbs 26.3 3 2024 04:25 PM 170.8 lbs 25.9 7 2024 12:41 PM 164.8 lbs 25.0 6 2024 06:56 PM 98.4 F 60 16 132 78 95.0 2024 09:31 AM 160.2 lbs 24.3 6 2024 09:14 AM 97.7 F 53 20 150 82 94.0 2024 06:09 PM 98.0 F 62 18 134 74 94.0 2024 09:12 AM 98.1 F 53 18 147 84 93.0 2024 08:15 AM 157.2 lbs 23.9 2024 08:44 PM 96.8 F 74 16 117 80 98.0 2024 03:41 PM 97.3 F 72 19 124 84 100.0 154.4 lbs 23.4 7 Advance Directives Directive Note Full Code [facility] Insurance Providers Payer Policy type Group Name Group number Policy ID Address Ph one Medicare Part A Medicare Part A [id number] Phone: Fax: Medicare Part B Medicare Part B [id number] Phone: Fax: [facility] [place] [facility] ([facility]) [id number] Phone: Fax: Clinical Quick Admit Private Phone: Fax: Private Private Phone: Fax: Private Interest Private Phone: Fax: Private Copay - Ins/HMO Private Phone: Fax: Immunizations Vaccine Perinatology Physician Date Status Dose Series Complete COVID-19 Vaccine Moderna 08/07/2021 Completed COVID-19 Vaccine Moderna 06/11/2020 Completed COVID-19 Vaccine Moderna 05/13/2020 Completed COVID-19 Vaccine 12/01/2024 Refused Influenza Vaccine 12/01/2024 Refused Pneumococcal Vaccine 12/01/2024 Refused RSV Vaccine 12/01/2024 Refused Zoster Vaccine 07/26/2020 Completed Procedures Not available for this record Results Name Date Time Positive/Negative Value Unit Range TB test 12/08/2024 09:45 AM Negative 0.0 mm TB test 12/02/2024 11:24 AM Negative 0.0 mm Goals Goal Date Will have a BM at least ever y 3 days for 120 days since update/last review AND/OR will not experience any complications r/t to colostomy for 120 days from update/ last review AND/OR Will not experience any GI complications for 120 days since update/last review AND/OR Will remain clean, dry between incontinent episodes thru 120days from update/last review 03/07/2025 ADL approaches will meet the resident?s needs to enhance ability, maintain abilities, or provide quality. 03/07/2025 West will maintain or improve nutritio nal status through next review 03/07/2025 Will participate in at least one group activity of preference weekly through next assessment 03/07/2025 Resident will remain free from falls. Adverse drug reactions will be identified with interventions initiated for 120 days from update/last review 03/07/2025 Will maintain maximum qualit y of life as possible while their needs continue to be met for 120days from update/last review AND/OR Will receive comfort care according to Hospice philosophy for 120 days from update/ last review 03/07/2025 Encounters Admission Date Discharge Date Description MRN Visit Count 12/01/2024 13:07 LTPAC Admission [id number]
[2024-12-27 21:30] LABS: Hematocrit 40.3 % (37-53); Hemoglobin 13.10 g/dL (11.27-16.99); Mean Corpuscular HGB Conc 32.5 g/dL (30-55); Mean Corpuscular Hemoglobin 31.1 pg (27-33); Mean Corpuscular Volume 95.7 fl (82-101); Nucleated Red Blood Cells % 0 %; Platelet Count 254 10^3/cmm (157-399); Red Blood Count 4.21 10^6/uL (3.85-5.65); White Blood Count 8.87 10^3/uL (3.29-11.43)
--- NOTE | 2024-12-27 21:34 | W.ED.OVERDOS ---
HPI - Overdose General: Chief Complaint: Overdose Stated Complaint: POSSIBLE OD Time Seen by Provider: 12/27/24 20:44 History of Present Illness: 89 yo M with dementia on hospice, residing in [place] [facility], brought by EMS after concern that his son added non-prescribed substances to a protein shake, possibly including a low-dose lithium orotate supplement. Son reports routinely adding a multivitamin, B-complex, and sometimes creatine to shakes; this time he opened capsules into the drink, which pt noted tasted funny. [facility] staff found pill residue. Son acknowledges possible very low-dose lithium orotate; intent reported as supportive, not harmful. Pt is confused at baseline but cooperative and appropriate. On baseline 2 L NC with SpO2 94%. Denies pain; no acute complaints. Family plans depend on spouse?s surgery, with potential future return home with caregiver support. Related Data Previous Rx's ?Medication ?Instructions ?Recorded lisinopril 10 mg tablet 10 mg PO DAILY #90 tabs 03/01/24 rosuvastatin 40 mg tablet 40 mg PO DAILY #90 tabs 03/01/24 loperamide 2 mg tablet (Imodium 2 mg PO Q6H PRN loose stool #60 05/09/24 A-D) tabs donepezil 23 mg tablet 23 mg PO .QPM 30 days #30 tabs 06/19/24 citalopram 40 mg tablet See Rx Instructions .Route 10/30/24 .COMPLEX #30 tabs cholecalciferol (vitamin D3) 1,250 See Rx Instructions .Route 11/22/24 mcg (50,000 unit) capsule .COMPLEX #12 caps Allergies Allergy/AdvReac Type Severity Reaction Status Date / Time aspirin AdvReac Severe Passing Verified 10/12/24 15:45 blood [facility] ED [facility]: Medical History (Updated 12/27/24 @ 22:19 by Kendell Boykin MD) Coronary artery disease PAC (premature atrial contraction) Hyperlipidemia History of subdural hematoma 2011 drained/stable HTN (hypertension) Surgical History History of shoulder surgery left History of coronary artery bypass graft x 2 History of total left knee replacement (TKR) History of hemorrhoidectomy History of appendectomy Family History Father CAD (coronary artery disease) Social History Smoking and tobacco/nicotine status: never used tobacco/nicotine Quit status (tobacco/nicotine): has quit using Former quit date comment: before 1999 Alcohol intake: never Substance/Drug Use: never Household members: spouse Marital status: Number of children: 1 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 occupational status: 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 Leisure activites: other Leisure activities details: golf Physical Exam Const: COMMON NORMALS: no acute distress and alert HENMT: COMMON NORMALS: normocephalic and atraumatic HEAD & SCALP: normocephalic and atraumatic Eye: COMMON NORMALS: Equal, round and reactive pupils present, EOMs intact bilaterally and no scleral icterus PUPIL: Yes Equal, round and reactive pupils present Resp: COMMON NORMALS: normal respiratory effort and No retractions Cardio: COMMON NORMALS: regular rate, regular rhythm and No murmurs present (Cardio) RATE: regular rate RHYTHM: regular rhythm GI: COMMON NORMALS: Normal to inspection, nondistended, normoactive bowel sounds present, Soft to palpation and non-tender PALPATION: Yes Soft to palpation Neuro: SENSORIUM/ORIENTATION: Yes alert OTHER: Pleasantly demented at baseline mental status. Skin: COMMON NORMALS: no rashes or lesions noted GENERAL SKIN EXAM: no rashes or lesions noted Course Vital Signs: Vital signs: Vital Signs Temperature 97.8 F 12/27/24 20:42 Pulse Rate 75 12/27/24 22:31 Respiratory Rate 16 12/27/24 22:31 Blood Pressure 154/96 12/27/24 22:31 Pulse Oximetry 98 12/27/24 22:31 Oxygen Delivery Me thod Room Air 12/27/24 21:50 Oxygen Flow Rate 2 12/27/24 20:42 MDM - Overdose Medical Decision Making 89 yo M with dementia on hospice from [place] after suspected ingestion of non-prescribed supplements; possible low-dose lithium orotate added by son to protein shake. Pt denies pain and has no acute complaints. Vitals stable on baseline O2. PE: clear lungs, regular heart, soft non-tender abdomen, no distress, baseline dementia. DDx: lithium exposure/toxicity vs benign vitamin/supplement ingestion. No clinical signs of toxicity at presentation per exam and stable vitals. Plan: obtain serum lithium level, urine drug screen, alcohol level, basic urine and blood tests; obtain urine via brief catheterization for sample. If lithium level not elevated and no evidence of toxicity, discharge back to [facility]; family ultimately plans possible home care with caregiver. Pt and son agreeable. All labs found to be within normal limits. No evidence of overdose. [place] level was almost undetectable. He will be discharged back to [place] [facility] in stable condition peer Lab Data 12/27/24 20:58 12/27/24 20:58 Laboratory Results WBC 8.87 10^3/uL (3.29-11.43) 12/27/24 20:58 RBC 4.21 10^6/uL (3.85-5.65) 12/27/24 20:58 Hgb 13.10 g/dL (11.27-16.99) 12/27/24 20:58 Hct 40.3 % (37-53) 12/27/24 20:58 MCV 95.7 fl (82-101) 12/27/24 20:58 MCH 31.1 pg (27-33) 12/27/24 20:58 MCHC 32.5 g/dL (30-55) 12/27/24 20:58 RDW 14.3 % (12.1-15.1) 12/27/24 20:58 Plt Count 254 10^3/cmm (157-399) 12/27/24 20:58 MPV 8.9 fL (7.4-10.4) 12/27/24 20:58 Neut % (Auto) 69.1 % 12/27/24 20:58 Lymph % (Auto) 19.2 % 12/27/24 20:58 [place] % (Auto) 8.8 % 12/27/24 20:58 Eos % (Auto) 1.7 % 12/27/24 20:58 Baso % (Auto) 0.7 % 12/27/24 20:58 Neut # (Auto) 6.14 10^3/uL (1.8-7.7) 12/27/24 20:58 Lymph # (Auto) 1.7 10^3/uL (0.8-4.8) 12/27/24 20:58 [place] # (Auto) 0.8 10^3/uL (0.2-0.9) 12/27/24 20:58 Eos # (Auto) 0.2 10^3/uL (0.0-0.8) 12/27/24 20:58 Baso # (Auto) 0.1 10^3/uL (0.0-0.1) 12/27/24 20:58 Nucleated RBC % (auto) 0 % 12/27/24 20:58 Nucleated RBCs # 0.0 /100WBC 12/27/24 20:58 Sodium 139 mmol/L (136-145) 12/27/24 20:58 Potassium 4.3 mmol/L (3.5-5.1) 12/27/24 20:58 Chloride 103 mmol/L (98-107) 12/27/24 20:58 Carbon Dioxide 27 mmol/L (22-29) 12/27/24 20:58 Anion Gap 13.3 (5-19) 12/27/24 20:58 BUN 34 mg/dL (8-23) H 12/27/24 20:58 Creatinine 1.0 mg/dL (0.7-1.2) 12/27/24 20:58 GFR Calculation Not Reportable 12/27/24 20:58 Glucose 88 mg/dL (65-115) 12/27/24 20:58 Calculated Osmolality 295 mOsm/kg (285-295) 12/27/24 20:58 Calcium 9.0 mg/dL (8.5-10.5) 12/27/24 20:58 Total Bilirubin 0.4 mg/dL (0.15-1.2) 12/27/24 20:58 AST 14 U/L (0-40) 12/27/24 20:58 ALT 17 U/L (0-41) 12/27/24 20:58 Alkaline Phosphatase 93 U/L (40-130) 12/27/24 20:58 Total Protein 5.9 g/dL (6.6-8.7) L 12/27/24 20:58 Albumin 3.6 g/dL (3.5-5.2) 12/27/24 20:58 Globulin 2.3 g/dL (1.3-4.6) 12/27/24 20:58 Salicylates < 0.3 mg/dL (3-10) L 12/27/24 20:58 Urine Opiates Screen Negative ng/mL (Negative) 12/27/24 21:28 Acetaminophen < 5.0 ug/mL (10-30) L 12/27/24 20:58 Ur Barbiturates Screen Negative ng/mL (Negative) 12/27/24 21:28 Ur Phencyclidine Scrn Negative ng/mL (Negative) 12/27/24 21:28 Ur Amphetamines Screen Negative ng/mL (Negative) 12/27/24 21:28 U Benzodiazepines Scrn Negative ng/mL (Negative) 12/27/24 21:28 [place] 0.1 mmol/L (0.6-1.2) L 12/27/24 20:58 Urine Cocaine Screen Negative ng/mL (Negative) 12/27/24 21:28 U Marijuana (THC) Screen Negative ng/mL (Negative) 12/27/24 21:28 Ethyl Alcohol < 10 mg/dL (0-10) 12/27/24 20:58 No radiology studies performed this visit Discharge Plan Discharge Patient Disposition: Home Clinical Impression: Suspected condition not found Condition: Stable Prescriptions: No Action lisinopril 10 mg tablet 10 mg PO DAILY Qty: 90 3RF rosuvastatin 40 mg tablet 40 mg PO DAILY Qty: 90 3RF donepezil 23 mg tablet 23 mg PO .QPM 30 Days Qty: 30 5RF loperamide [Imodium A-D] 2 mg tablet 2 mg PO Q6H PRN (Reason: loose stool) Qty: 60 0RF citalopram 40 mg tablet See Rx Instructions .ROUTE .COMPLEX Qty: 30 11RF Dose Instruction: Take 1 tablet by mouth once daily Rx Instructions: Take 1 tablet by mouth once daily cholecalciferol (vitamin D3) 1,250 mcg (50,000 unit) capsule See Rx Instructions .ROUTE .COMPLEX Qty: 12 6RF Dose Instruction: Take 1 capsule by mouth once a week Rx Instructions: Take 1 capsule by mouth once a week Discharge Orders: Discharge ED (Routine); Ordered 12/27/24 Ordered By: Kendell Boykin Discharge Diet: Usual diet Discharge Activity: Resume usual activity Patient Instructions: Patient Portal & Chip Instructions Activity Restrictions/Additional Instructions: Basic blood work, alcohol level, drug screen, salicylate, acetaminophen, and lithium test are all normal. There is no evidence of any toxicity at this time. It is safe to resume normal medications as prescribed Print Language: Singaporean Coding Level of Care Code ED Trust Clerk for Vera Meléndez
[2024-12-27 21:36] LABS: Alanine Aminotransferase 17 U/L (0-41); Albumin Level 3.6 g/dL (3.5-5.2); Alkaline Phosphatase 93 U/L (40-130); Anion Gap 13.3 (5-19); Aspartate Amino Transferase 14 U/L (0-40); Blood Urea Nitrogen 34 mg/dL (8-23); Calcium 9.0 mg/dL (8.5-10.5); Carbon Dioxide 27 mmol/L (22-29); Chloride 103 mmol/L (98-107); Creatinine Clr Calc Pharmacy 52.8731; Globulin 2.3 g/dL (1.3-4.6); Glucose 88 mg/dL (65-115); Osmolality Calculated 295 mOsm/kg (285-295); Potassium 4.3 mmol/L (3.5-5.1); Sodium 139 mmol/L (136-145); Total Protein 5.9 g/dL (6.6-8.7)
[2024-12-27 21:37] LABS: Acetaminophen < 5.0 ug/mL (10-30); Alcohol Level < 10 mg/dL (0-10); Salicylate < 0.3 mg/dL (3-10)
[2024-12-27 21:40] LABS: Lithium 0.1 mmol/L (0.6-1.2)
[2024-12-27 21:44] LABS: PCP Screen Urine Negative (Negative)
[2024-12-27 21:50] VITALS: BP 154/96; PULSE 76; RESP 18; O2SAT 91
[2024-12-27 22:31] VITALS: BP 154/96; PULSE 75; RESP 16; O2SAT 98
== END 2024-12-27 22:32 | disposition home or self-care (01) ==
PROVIDERS: Emergency Provider Student in an Organized Health Care Education/Training Program
DX: Z03.89 Encounter for observation for other suspected diseases and conditions ruled out (principal); Z87.891 Personal history of nicotine dependence; E78.5 Hyperlipidemia, unspecified; I10 Essential (primary) hypertension; I25.10 Atherosclerotic heart disease of native coronary artery without angina pectoris
CPT/HCPCS: 80053; 80178; 80306; 80307; 85025; 99283